=== PATIENT | female | born 1995 | race Two or more races ===

== ENCOUNTER 2024-11-27 13:00 | Emergency (ER) | payer OTHER, MEDICAID ==
[~2024-11-27] VITALS: Ht 157.5 cm; Wt 81.0 kg
--- NOTE | 2024-11-27 13:19 | ED.PDOC ---
HPI Comments 29y F who presents to the ED for chief complaint of chest pain. Pt states she has been having chest pain since 230 PM 1 days prior. Pt states the pain is located in the center of her chest, rating the pain 7/10, constant, radiating to the back, pressure like in nature,with no associated exacerbating or relieving factors. Pt has associated shortness of breath but otherwise denies any other symptoms. Pt states she went to urgent care and was referred for further evaluation. Pt denies any other symptoms at this time. 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 Family History Family History: Unknown Social History Smoker: Non-Smoker Alcohol: Denies ETOH Use Drugs: Denies Drug Use Lives In: Home Constitutional: denies: chills, diaphoresis, fatigue, fever, malaise, sweats, weakness, others EENTM: denies: blurred vision, double vision, ear bleeding, ear discharge, ear drainage, ear pain, ear ringing, eye pain, eye redness, hearing loss, mouth pain, mouth swelling, nasal discharge, nose bleeding, nose congestion, nose pain, photophobia, tearing, throat pain, throat swelling, voice changes, others Respiratory: reports: shortness of breath; denies: cough, hemoptysis, orthopnea, SOB at rest, SOB with excertion, stridor, wheezing, others Cardiovascular: reports: chest pain; denies: dizzy spells, diaphoresis, Dyspnea on exertion, edema, irregular heart beat, left arm pain, lightheadedness, palpitations, PND, syncope, others Gastrointestinal: denies: abdomen distended, abdominal pain, blood streaked bowels, constipated, diarrhea, dysphagia, difficulty swallowing, hematemesis, melena, nausea, poor appetite, poor fluid intake, rectal bleeding, rectal pain, vomiting, others Genitourinary: denies: abnormal vagina bleeding, burning, dyspareunia, dysuria, flank pain, frequency, hematuria, incontinence, pain, , vagina discharge, urgency, others Neurological: denies: dizziness, fainting, headache, left sided numbness, left sided weakness, numbness, paresthesia, pre-existing deficit, right sided numbness, right sided weakness, seizure, speech problems, tingling, tremors, weakness, others Musculoskeletal: denies: back pain, gout, joint pain, joint swelling, muscle pain, muscle stiffness, neck pain, others Integumetry: denies: bruises, change in color, change in hair/nails, dryness, laceration, lesions, lumps, rash, wounds, others Allergic/Immunocompromised: denies: Difficulty Healing, Frequent Infections, Hives, Itching, others Hematologic/Lymphatic: denies: anemia, blood clots, easy bleeding, easy bruising, swollen glands, others Endocrine: denies: excessive hunger, excessive sweating, excessive thirst, excessive urination, flushing, intolerance to cold, intolerance to heat, unexplained weight gain, unexplained weight loss, others Psychiatric: denies: anxiety, bipolar disorder, depression, hopeless, panic disorder, schizophrenia, sleepless, suicidal, others All Other Systems: Reviewed and Negative Physical Exam General Appearance: No Apparent Distress HEENT: Normal ENT Inspection, Pharynx Normal, TMs Normal Neck: Full Range of Motion, Non-Tender, Normal, Normal Inspection Respiratory: Chest Non-Tender, Lungs Clear, No Accessory Muscle Use, No Respiratory Distress, Normal Breath Sounds Cardiovascular: No Edema, No JVD, No Murmur, No Gallop, Tachycardia Breast Exam: Deferred Gastrointestinal: No Organomegaly, Non Tender, No Pulsatile Mass, Normal Bowel Sounds, Soft Genitalia: Deferred Pelvic: Deferred Rectal: Deferred Extremities: No calf tenderness, Normal capillary refill, Normal inspection, Normal range of motion, Non-tender, No pedal edema Musculoskeletal : Apperance: Normal Neurologic: Alert, welfare eligibility worker II-XII nml as Tested, No Motor Deficits, Normal Affect, Normal Mood, No Sensory Deficits Cerebellar Function: Normal Reflexes: Normal Skin: Dry, Normal Color, Warm Lymphatic: No Adenopathy EKG EKG : Pulse Rate (adult): 100 Brogan: Normal Cardiac Rhythm: ST Block: None Hypertrophy: None ST: Normal Was a procedure done? Was a procedure done?: No CP Differential Dx Differential Diagnosis: A-fib, A-Flutter, Angina, Anxiety / Panic Attack, Atrial Dysrhythmia, PVC's Differential Diagnosis: HTN Essential, HTN Accelerated Differential Diagnosis: Chest Wall Pain, Costochondritis X-Ray, Labs, Meds, VS Vital Signs Date Time Temp Pulse Resp B/P (MAP) Pulse Ox O2 Delivery O2 Flow Rate FiO2 11/27/24 15:00 98.1 95 18 107/75 (86) 99 98.1 11/27/24 14:04 104 11/27/24 13:19 100 11/27/24 13:06 98.2 104 18 108/72 (84) 98 11/27/24 13:05 100 Lab Test 11/27/24 13:55 11/27/24 13:11 11/27/24 11:31 Range/Units Troponin I High Sensitivity < 3 L < 3 L </=34 ng/L White Blood Count 6.1 4.4-10.8 10^3/uL Red Blood Count 4.40 4.0-5.20 10^6/uL Hemoglobin 13.2 12.2-16.2 g/dL Hematocrit 38.9 36.0-46.0 % Mean Corpuscular Volume 88.4 80.0-100.0 fL Mean Corpuscular Hemoglobin 30.1 28.0-32.0 pg Mean Corpuscular Hemoglobin Concent 34.0 32.0-36.0 g/dL Red Cell Distribution Width 13.7 11.8-14.3 % Platelet Count 330 140-450 10^3/uL Mean Platelet Volume 7.7 6.9-10.8 fL Neutrophils (%) (Auto) 64.9 37.0-80.0 % Lymphocytes (%) (Auto) 28.1 10.0-50.0 % Monocytes (%) (Auto) 5.4 0.0-12.0 % Eosinophils (%) (Auto) 0.6 0.0-7.0 % Basophils (%) (Auto) 1.0 0.0-2.0 % Neutrophils # (Auto) 4.0 1.6-8.6 10 ^3/uL Lymphocytes # (Auto) 1.7 0.4-5.4 10 ^3/uL Monocytes # (Auto) 0.3 0-1.3 10 ^3/uL Eosinophils # (Auto) 0 0-0.8 10 ^3/uL Basophils # (Auto) 0.1 0-0.2 10 ^3/uL Nucleated Red Blood Cells 0.2 % Sodium Level 139 136-145 mmol/L Potassium Level 4.0 3.5-5.1 mmol/L Chloride Level 104 98-107 mmol/L Carbon Dioxide Level 26 20-31 mmol/L Anion Gap 9 5-15 Blood Urea Nitrogen 8 L 9-23 mg/dL Creatinine 0.79 0.550-1.02 mg/dL Glomerular Filtration Rate Calc 104 >90 mL/min BUN/Creatinine Ratio 10.1 10.0-20.0 Serum Glucose 98 74-106 mg/dL Calcium Level 10.0 8.7-10.4 mg/dL Total Bilirubin 0.7 0.2-1.0 mg/dL Aspartate Amino Transferase (AST) 15 13-40 U/L Alanine Aminotransferase (ALT) 21 7-40 U/L Alkaline Phosphatase 79 46-116 U/L Total Protein 8.2 5.7-8.2 g/dL Albumin 5.2 H 3.2-4.8 g/dL D-Dimer, Quantitative < 0.19 0.0-0.49 mg/L FEU EXAM: XY CHEST TWO VIEWS ROUTINE IMPRESSION: No acute cardiopulmonary disease. The patient's CBC is within normal limits The chemistry panel is within normal limits The D-dimer is within normal limits The patient's troponin level x2 is negative At this time, the patient will be discharged and will follow up with the primary care doctor The patient will return to the emergency department's condition worsens. Images Reviewed?: Images reviewed and evaluated by me Time of 1ST Reevaluation: 13:45 Reevaluation 1ST: Unchanged Patient Education/Counseling: Diagnosis, Treatment, Prognosis, Need For Follow Up Family Education/Counseling: No Family Present Departure 1 Departure Time of Disposition: 15:32 Impression: Primary Impression: Non-cardiac chest pain Disposition: 01 HOME / SELF CARE / HOMELESS Condition: Fair Discharged With: Self Critical Care Note Critical Care Time?: No Stability Stability form required: No Heart Score Heart Score: Heart Score Response (Comments) Value History Slightly Suspicious 0 EKG Normal 0 Age <45 0 Risk Factors No known risk factors 0 Troponin Normal limit 0 Total 0 I personally scribed for RIKKI INFANTE MD ([email or web address]) on 11/27/24 at 13:19. Electronically submitted by Muna Florian ([email or web address]). I personally scribed for RIKKI INFANTE MD ([email or web address]) on 11/27/24 at 14:07. Electronically submitted by Muna Florian ([email or web address]). RIKKI INFANTE MD Nov 27, 2024 13:19
[2024-11-27 13:38] LABS: Basophils # (auto) 0.1 10 ^3/uL (0-0.2); Eosinophils # (auto) 0 10 ^3/uL (0-0.8); Eosinophils % (auto) 0.6 % (0.0-7.0); Hematocrit 38.9 % (36.0-46.0); Hemoglobin 13.2 g/dL (12.2-16.2); Lymphocytes # (auto) 1.7 10 ^3/uL (0.4-5.4); Lymphocytes % (auto) 28.1 % (10.0-50.0); Mean Corpuscular Hemoglobin 30.1 pg (28.0-32.0); Mean Corpuscular Volume 88.4 fL (80.0-100.0); Monocytes # (auto) 0.3 10 ^3/uL (0-1.3); Monocytes % (auto) 5.4 % (0.0-12.0); Neutrophils % (auto) 64.9 % (37.0-80.0); Nucleated Red Blood Cells % 0.2 %; Platelet Count (auto) 330 10^3/uL (140-450); Red Cell Distribution Width 13.7 % (11.8-14.3); White Blood Cell 6.1 10^3/uL (4.4-10.8)
--- NOTE | 2024-11-27 13:44 | DVH ---
EXAM: XY CHEST TWO VIEWS ROUTINE CLINICAL HISTORY: CP COMPARISON: None TECHNIQUE: Frontal and lateral view of the chest was obtained FINDINGS: Lines and Tubes: None Lungs: No focal consolidation. Pleura: No effusion. No pneumothorax. Cardiomediastinal contours: Unremarkable Bones: No acute osseous abnormality. IMPRESSION: No acute cardiopulmonary disease.
[2024-11-27 13:47] LABS: Alanine Aminotransferase 21 U/L (7-40); Alkaline Phosphatase 79 U/L (46-116); Anion Gap 9 (5-15); Aspartate Aminotransferase 15 U/L (13-40); BUN/Creatinine Ratio 10.1 (10.0-20.0); Carbon Dioxide 26 mmol/L (20-31); Chloride 104 mmol/L (98-107); Glucose 98 mg/dL (74-106); Sodium 139 mmol/L (136-145)
[2024-11-27 13:48] LABS: Albumin 5.2 g/dL (3.2-4.8); Bilirubin, Total 0.7 mg/dL (0.2-1.0); Blood Urea Nitrogen 8 mg/dL (9-23); Total Protein 8.2 g/dL (5.7-8.2)
--- NOTE | 2024-11-27 14:08 | ECG ---
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
[2024-11-27 15:00] VITALS: BP 107/75; PULSE 95; RESP 18; TEMP 98.1; O2SAT 99
[2024-11-27 15:59] LABS: Urine Bacteria FEW /hpf (None Seen); Urine Blood Negative /uL (Negative); Urine Clarity Turbid (Clear); Urine Color Light-Yellow (Yellow); Urine Mucus FEW (None Seen); Urine Protein, UAD Negative (Negative); Urine Specific Gravity 1.017 (1.001-1.035); Urine Squamous Epithelial Cell MOD /hpf (<5); Urine Urobilinogen Normal (Negative); Urine WBC 5 /HPF (0-5)
--- NOTE | 2024-11-28 07:26 | ECG ---
[facility] Test Date: 2024-11-27 Test Time: 13:05:45 Pat Name: NEVILLE CALIX Department: ER Room: Gender: F Director Automotive: NAVA : 1995 Requested By: RIKKI INFANTE Order Number: [id number] Reading MD: Juan Diego Bales Measurements Intervals [place] Rate: 100 P: 38 SD: 148 QRS: 57 QRSD: 82 T: -46 QT: 303 QTc: 391 Interpretive Statements Sinus tachycardia Nonspecific T abnormalities, diffuse leads Electronically Signed On 11-30-2024 17:38:30 PST by Juan Diego Bales Please click the below link to view image of tracing.
== END 2024-11-27 16:00 | disposition home or self-care (01) ==
LOC: ER 13:00
DX: R07.89 Other chest pain (principal); E07.9 Disorder of thyroid, unspecified
CPT/HCPCS: 36415; 71046; 80053; 81001; 84484; 85025; 85379; 93005

== ENCOUNTER 2025-02-10 15:23 | Emergency (ER) | payer OTHER, MEDICAID ==
[~2025-02-10] VITALS: Ht 157.5 cm; Wt 83.0 kg
--- NOTE | 2025-02-10 16:22 | ED.PDOC ---
Back pain HPI HPI Comments 29 year old female presents to the ED with a chief complaint of LT shoulder pain onset today (02/10/25). Patient went to chiropractor appointment today due to chronic back pain, had a low back massage. Patient went home, tried to take a nap when she began experiencing LT shoulder, LT neck pain. Patient is currently of muscle relaxer due to chronic back pain. PMHx thyroid. Denies injury, fall, trauma, chest pain, shortness of breath, dizziness, nausea, vomiting, diarrhea. No other symptoms or modifying factors present at this time. 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 Family History Family History: Unknown Social History Smoker: Non-Smoker Alcohol: Denies ETOH Use Drugs: Denies Drug Use Lives In: Home Constitutional: denies: chills, diaphoresis, fatigue, fever, malaise, sweats, weakness, others EENTM: denies: blurred vision, double vision, ear bleeding, ear discharge, ear drainage, ear pain, ear ringing, eye pain, eye redness, hearing loss, mouth pain, mouth swelling, nasal discharge, nose bleeding, nose congestion, nose pain, photophobia, tearing, throat pain, throat swelling, voice changes, others Respiratory: denies: cough, hemoptysis, orthopnea, SOB at rest, shortness of breath, SOB with excertion, stridor, wheezing, others Cardiovascular: denies: chest pain, dizzy spells, diaphoresis, Dyspnea on exertion, edema, irregular heart beat, left arm pain, lightheadedness, palpitations, PND, syncope, others Gastrointestinal: denies: abdomen distended, abdominal pain, blood streaked bowels, constipated, diarrhea, dysphagia, difficulty swallowing, hematemesis, melena, nausea, poor appetite, poor fluid intake, rectal bleeding, rectal pain, vomiting, others Genitourinary: denies: abnormal vagina bleeding, burning, dyspareunia, dysuria, flank pain, frequency, hematuria, incontinence, pain, , vagina discharge, urgency, others Neurological: denies: dizziness, fainting, headache, left sided numbness, left sided weakness, numbness, paresthesia, pre-existing deficit, right sided numbness, right sided weakness, seizure, speech problems, tingling, tremors, weakness, others Musculoskeletal: reports: neck pain, others (LT shoulder pain); denies: back pain, gout, joint pain, joint swelling, muscle pain, muscle stiffness Integumetry: denies: bruises, change in color, change in hair/nails, dryness, laceration, lesions, lumps, rash, wounds, others Allergic/Immunocompromised: denies: Difficulty Healing, Frequent Infections, Hives, Itching, others Hematologic/Lymphatic: denies: anemia, blood clots, easy bleeding, easy bruising, swollen glands, others Endocrine: denies: excessive hunger, excessive sweating, excessive thirst, excessive urination, flushing, intolerance to cold, intolerance to heat, unexplained weight gain, unexplained weight loss, others Psychiatric: denies: anxiety, bipolar disorder, depression, hopeless, panic disorder, schizophrenia, sleepless, suicidal, others All Other Systems: Reviewed and Negative Physical Exam General Appearance: No Apparent Distress, Normal HEENT: Normal ENT Inspection, Pharynx Normal, TMs Normal Neck: Full Range of Motion, Non-Tender, Normal, Normal Inspection Respiratory: Chest Non-Tender, Lungs Clear, No Accessory Muscle Use, No Respiratory Distress, Normal Breath Sounds Cardiovascular: No Edema, No JVD, No Murmur, No Gallop, Normal Peripheral Pulses, Regular Rate/Rhythm Breast Exam: Deferred Gastrointestinal: No Organomegaly, Non Tender, No Pulsatile Mass, Normal Bowel Sounds, Soft Genitalia: Deferred Pelvic: Deferred Rectal: Deferred Extremities: Tender (LT trapezius, limited ROM cervical spine) Musculoskeletal : Apperance: Normal Neurologic: 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 Was a procedure done?: No Back Pain Differential Dx Differential Diagnosis: N/A Other Differential Diagnosis Torticollis, muscle spasm, rye neck, X-Ray, Labs, Meds, VS Comment Imaging: X-rays and CT scans were reviewed and interpreted by this provider, imaging shows no fractures and no pathological disease. Pending radiology review. Laboratory: Labs reviewed and interpreted by this provider. No significant abnormalities noted. Patient has prior medical visits reviewed. Med reconciliation performed Vital signs reviewed Time of 1ST Reevaluation: 16:17 Reevaluation 1ST: Unchanged Patient Education/Counseling: Diagnosis, Treatment, Prognosis, Need For Follow Up (Follow up with PCP in the next 2-4 days.) Family Education/Counseling: No Family Present Departure 1 Departure Time of Disposition: 16:39 Impression: Primary Impression: Torticollis Disposition: 01 HOME / SELF CARE / HOMELESS Condition: Fair e-Prescriptions Cyclobenzaprine Hcl (Cyclobenzaprine Hcl) 5 Mg Tab 1 TAB PO TID PRN, #30 TAB Prov: JULI FERNANDO 02/10/25 Discharged With: Self Critical Care Note Critical Care Time?: No Stability Stability form required: No Heart Score Heart Score: Heart Score Response (Comments) Value History N/A 0 EKG N/A 0 Age N/A 0 Risk Factors N/A 0 Troponin N/A 0 Total 0 I personally scribed for JULI FERNANDO ([email or web address]) on 02/10/25 at 16:22. Electronically submitted by Maddy Freeman ([email or web address]). JULI FERNANDO February 10, 2025 16:22
[2025-02-10] MEDS ORDERED: CYCL-837 PO (16:40)
[2025-02-10] MEDS: methylPREDNISolone SOD SUCC 125 MG/2 ML VL IM ONE (19:34)
[2025-02-10] MEDS: DexAMETHasone SOD PHOS 10MG/1ML VIAL INJ IM ONE (20:39)
[2025-02-10] MEDS: KETOROLAC TROMETH 30 MG/ML 1ML VIAL IM ONE (20:40)
[2025-02-10 20:41] VITALS: PULSE 61; RESP 16; O2SAT 99
[2025-02-10 21:00] VITALS: BP 137/85; PULSE 94; RESP 18; TEMP 97.7; O2SAT 100
== END 2025-02-10 20:42 | disposition home or self-care (01) ==
LOC: ER 15:35
DX: M43.6 Torticollis (principal); G89.29 Other chronic pain
CPT/HCPCS: 96372; 99284; J1100; J1885